=== PATIENT | female | born 1960 | race Two or more races ===

== ENCOUNTER 2017-11-10 15:49 | Emergency (ER) | payer OTHER ==
[~2017-11-10] VITALS: Ht 167.6 cm; Wt 72.6 kg
[~2017-11-10 15:49] MED LIST: SYNTHROID50 MCG PO; TESSALON200 MG PO
== END 2017-11-10 20:22 | disposition home or self-care (01) ==
LOC: ER 15:49
DX: S92.411A Displaced fracture of proximal phalanx of right great toe, initial encounter for closed fracture (principal); W22.8XXA Striking against or struck by other objects, initial encounter; Y93.89 Activity, other specified; Y92.098 Other place in other non-institutional residence as the place of occurrence of the external cause; Y99.8 Other external cause status

== ENCOUNTER 2017-11-29 16:54 | Outpatient (CLI) | payer OTHER | END 2017-11-29 17:03 | disposition home or self-care (01) | LOC: RAD 16:54 | DX: R07.89 Other chest pain (principal) ==

== ENCOUNTER 2018-02-10 10:24 | Outpatient (CLI) | payer OTHER | END 2018-02-10 10:38 | disposition home or self-care (01) | LOC: LAB 10:24 | DX: R50.9 Fever, unspecified (principal); R05 Cough ==

== ENCOUNTER 2018-02-11 12:31 | Emergency (ER) | payer OTHER ==
[~2018-02-11] VITALS: Ht 167.6 cm; Wt 74.8 kg
== END 2018-02-11 13:32 | disposition home or self-care (01) ==
LOC: ER 12:31
DX: J06.9 Acute upper respiratory infection, unspecified (principal)

== ENCOUNTER 2019-06-26 07:50 | Outpatient (CLI) | payer OTHER | END 2019-06-26 08:23 | disposition home or self-care (01) | LOC: LAB 07:50 | DX: N39.0 Urinary tract infection, site not specified (principal); D64.89 Other specified anemias; Z13.1 Encounter for screening for diabetes mellitus; Z13.220 Encounter for screening for lipoid disorders; N95.1 Menopausal and female climacteric states; R97.0 Elevated carcinoembryonic antigen [CEA]; R97.1 Elevated cancer antigen 125 [CA 125]; E55.9 Vitamin D deficiency, unspecified; D51.3 Other dietary vitamin B12 deficiency anemia; Z12.11 Encounter for screening for malignant neoplasm of colon ==

== ENCOUNTER 2019-06-26 08:45 | Outpatient (CLI) | payer OTHER | END 2019-06-26 09:43 | disposition home or self-care (01) | LOC: MAMO-SONO 08:45 | DX: Z12.31 Encounter for screening mammogram for malignant neoplasm of breast (principal); Z87.898 Personal history of other specified conditions; N60.11 Diffuse cystic mastopathy of right breast; N60.12 Diffuse cystic mastopathy of left breast; N85.01 Benign endometrial hyperplasia; E04.8 Other specified nontoxic goiter ==

== ENCOUNTER 2021-03-04 10:17 | Outpatient (CLI) | payer OTHER | END 2021-03-04 10:28 | disposition home or self-care (01) | LOC: MAMO-SONO 10:17 | PROVIDERS: ATTEND Obstetrics & Gynecology Obstetrics | DX: N60.11 Diffuse cystic mastopathy of right breast (principal); N60.12 Diffuse cystic mastopathy of left breast; N64.59 Other signs and symptoms in breast; E04.8 Other specified nontoxic goiter; N85.01 Benign endometrial hyperplasia; Z12.31 Encounter for screening mammogram for malignant neoplasm of breast ==

== ENCOUNTER 2021-03-04 12:04 | Outpatient (CLI) | payer OTHER | END 2021-03-04 12:12 | disposition home or self-care (01) | LOC: NUCLEAR 12:04 | PROVIDERS: ATTEND Obstetrics & Gynecology Obstetrics | DX: M81.0 Age-related osteoporosis without current pathological fracture (principal) ==

== ENCOUNTER 2022-04-05 08:02 | Outpatient (CLI) | payer OTHER | END 2022-04-05 08:15 | disposition home or self-care (01) | LOC: NUCLEAR 08:02 | PROVIDERS: ATTEND Internal Medicine Cardiovascular Disease | DX: I20.9 Angina pectoris, unspecified (principal) | CPT/HCPCS: 78452; 93017; A9500 ==

== ENCOUNTER 2022-04-21 11:05 | Outpatient (CLI) | payer OTHER | END 2022-04-21 11:10 | disposition home or self-care (01) | LOC: MAMO-SONO 11:05 | PROVIDERS: ATTEND Obstetrics & Gynecology Obstetrics | DX: Z12.31 Encounter for screening mammogram for malignant neoplasm of breast (principal); N60.11 Diffuse cystic mastopathy of right breast; N60.12 Diffuse cystic mastopathy of left breast; N85.00 Endometrial hyperplasia, unspecified ==

== ENCOUNTER → 2024-04-01 07:48 | Outpatient (CLI) | payer OTHER | END | disposition home or self-care (01) | LOC: NUCLEAR 07:48 | PROVIDERS: ATTEND Internal Medicine Hematology & Oncology | DX: C50.511 Malignant neoplasm of lower-outer quadrant of right female breast (principal) ==

== ENCOUNTER 2025-03-20 16:23 | Outpatient (CLI) | payer OTHER | END 2025-03-20 16:30 | disposition home or self-care (01) | LOC: RAD 16:23 | PROVIDERS: ATTEND Internal Medicine Cardiovascular Disease | DX: I10 Essential (primary) hypertension (principal) ==

== ENCOUNTER → 2025-04-29 10:20 | Outpatient (CLI) | payer OTHER | END | disposition home or self-care (01) | LOC: NUCLEAR 04-08 09:00 | DX: M81.0 Age-related osteoporosis without current pathological fracture (principal) ==

== ENCOUNTER 2025-06-30 15:45 | Outpatient (CLI) | payer OTHER | END 2025-06-30 15:55 | disposition home or self-care (01) | LOC: RAD 15:45 | DX: Z01.818 Encounter for other preprocedural examination (principal) ==